=== PATIENT | female | born 1980 | race Two or more races ===

== ENCOUNTER 2024-09-08 20:39 | Emergency (ER) | payer OTHER ==
[~2024-09-08] VITALS: Ht 167.6 cm; Wt 70.9 kg
[2024-09-09] MEDS: DiphenhydrAMINE HCL 25 MG CAPSULE PO ONE (00:34)
[2024-09-09] MEDS: METHOCARBAMOL 500 MG TABLET PO ONE (00:34)
[2024-09-09] MEDS: ACETAMINOPHEN 500 MG TABLET PO ONE (00:34)
[2024-09-09] MEDS: KETOROLAC TROMETHAMINE 60 MG/2 ML VIAL IM ONE (00:35)
[2024-09-09 00:48] VITALS: BP 129/86; PULSE 68; RESP 18; TEMP 97.3; O2SAT 98
== END 2024-09-09 00:51 ==
LOC: EMS 20:39 → EDBD 20:39 → EMS 09-09 00:51
DX: S46.811A Strain of other muscles, fascia and tendons at shoulder and upper arm level, right arm, initial encounter (principal); S00.83XA Contusion of other part of head, initial encounter; E03.9 Hypothyroidism, unspecified; I10 Essential (primary) hypertension; Z87.39 Personal history of other diseases of the musculoskeletal system and connective tissue; Y04.8XXA Assault by other bodily force, initial encounter; Y93.89 Activity, other specified; Y92.89 Other specified places as the place of occurrence of the external cause; Y99.8 Other external cause status
CPT/HCPCS: 99284; 73030; 73080; 73100; 96372; J1885; 29105

== ENCOUNTER 2025-04-26 13:54 | Emergency (ER) | payer OTHER ==
[~2025-04-26] VITALS: Ht 167.6 cm; Wt 100.0 kg
[2025-04-26 14:19] LABS: PLATELET COUNT (AUTO) 319 K/uL (150-450); RED BLOOD CELL COUNT(AUTO) 3.94 MIL/uL (4.00-5.20); RED CELL DISTRIBUTION WIDTH 13.6 % (11.5-14.5); WHITE BLOOD COUNT (AUTO) 5.1 K/uL (4.5-11.0)
[2025-04-26 14:27] LABS: CALCIUM, TOTAL 8.1 mg/dL (8.8-10.5); CREATININE 0.94 mg/dL (0.60-1.30); GLOMERULAR FILTR. RATE CALC > 60 mL/min (>60); GLUCOSE,RANDOM 111 mg/dL (70-110); SODIUM SERUM 141 mmol/L (136-145); UREA NITROGEN, BLOOD 12 mg/dL (7-18)
[2025-04-26 14:38] LABS: ASPARTATE AMINOTRANSFERASE 33 U/L (15-37); HCG,QUANTITATIVE < 1 mIU/mL (0-6); TOTAL PROTEIN, SERUM 7.0 g/dL (6.4-8.2)
[2025-04-26 15:25] LABS: APPEARANCE,URINE CLEAR (CLEAR); GLUCOSE, URINE (UA) NEGATIVE (NEGATIVE); LEUKOCYTE ESTERASE ,URINE NEGATIVE (NEGATIVE); NITRATE,URINE NEGATIVE (NEGATIVE); OCCULT BLOOD,URINE LARGE (NEGATIVE); SPECIFIC GRAVITIY, URINE 1.037 (1.003-1.030)
[2025-04-26 15:59] LABS: SQUAMOUS EPITHELIAL CELL,UR Few /LPF (None Seen)
[2025-04-26 20:22] VITALS: BP 114/68; PULSE 96; RESP 14; TEMP 97.3; O2SAT 97
== END 2025-04-27 00:55 | disposition home or self-care (01) ==
LOC: EMS 13:56
DX: N93.8 Other specified abnormal uterine and vaginal bleeding (principal); R31.9 Hematuria, unspecified; N89.8 Other specified noninflammatory disorders of vagina; N83.202 Unspecified ovarian cyst, left side; E03.9 Hypothyroidism, unspecified; I10 Essential (primary) hypertension; Z90.49 Acquired absence of other specified parts of digestive tract
CPT/HCPCS: 74176; 76856; 80053; 81001; 84702; 85025; 99284